=== PATIENT | female | born 1995 | race African-American/Black ===

== ENCOUNTER → 2021-01-28 | Outpatient (CLI) | payer OTHER ==
--- NOTE | 2021-01-28 08:33 | RAD ---
EXAM: Head CT without contrast. HISTORY: Concussion. TECHNIQUE: Computed tomographic images of the head were obtained without contrast. *One or more of the following individualized dose reduction techniques were utilized for this examina tion: 1. Automated exposure control. 2. Adjustment of the mA and/or kV according to patient size. 3. Use of iterative reconstruction technique. COMPARISON: None. FINDINGS: There is no acute or subacute extra-axial or intraparenchymal hemorrhage. There is no mass effect or midline shift. There is no hydrocephalus. The royal-white matter differentiation pattern is intact. There is a left parietal scalp soft tissue h ematoma. No calvarial fracture or radiodense foreign body is seen. There are few prominent right subo ccipital lymph nodes. IMPRESSION: 1. No acute intercranial finding. 2. Left parietal scalp soft tissue hematoma. Electronically signed by: Miladys Lira MD (01/28/2021 8:31 AM) [id number]
== END ==
LOC: CT 07:54
PROVIDERS: ATTEND Nurse Practitioner Adult Health
DX: S00.03XA Contusion of scalp, initial encounter (principal); S06.0X1A Concussion with loss of consciousness of 30 minutes or less, initial encounter; X58.XXXA Exposure to other specified factors, initial encounter; Y93.89 Activity, other specified; Y92.89 Other specified places as the place of occurrence of the external cause; Y99.8 Other external cause status
CPT/HCPCS: 70450